=== PATIENT | female | born 1990 | race Caucasian/White ===

== ENCOUNTER 2018-01-13 09:15 | Emergency (ER) | payer OTHER ==
[~2018-01-13 09:15] MED LIST: ACET325; ALBU90OI INH; AMOX500 PO; ASCO1ER; AZIT250 PO; BIRTH CONTROL PO; Baclofen10 MG PO; Bactrim Ds Tab1 EACH PO; CEPH500 PO; CIPR250 PO; CLON.1 PO; CLON.2 PO; CLOT10 SS; CODACE30 PO; CYAN1000 PO; CYCL10 PO; Cipro250 MG PO; Cleocin HCl150 MG PO; Cleocin HCl300 MG PO; DOXY100 PO; Diflucan150 MG PO; ERGO50000 PO; FERR160; FLUC150A PO; GABA300 PO; GABA800 PO; HYDACE10B PO; HYDACE5 PO; HYDR1TAB94 PO; IBUP800 PO; KETO10 PO; LOPE2C PO; MAGIC MOUTHWASH; MEDR150I; MELO7.5 PO; METO5A PO; METPRE4DP PO; MULVITMINE; Macrobid 100 M100 MG PO; NAPR375 PO; NAPR500 PO; NAPR550 PO; NEOCOLOTSU OT; Naprosyn500 MG PO; Necon1 EAC2 PO; Norco 5-325 Ta1 EACH PO; ONDA8ODT MM; OXYACE5T PO; OXYACE7.5T PO; PAMPRIN; PARO12.5 PO; PARO30 PO; PENVK500 PO; PRAZ1 PO; PRED20 PO; PROM25 PO; Prazosin HCl1 MG PO; Prednisone20 MG PO; Pyridium200 MG PO; QUET200 PO; QUET25 PO; RXCODACET PO; RXCYCL10 PO; RXHYDACE PO; RXOXYACE PO; RXPENVK250 PO; SULTRIDS PO; TRAM50 PO; VENTOLIN; Ventolin5 MG/1 ML IH; Zofran Odt4 MG PO; Zofran Odt4 MG SL; [UNRECOGNIZED DRUG - REMARK]
== END 2018-01-13 11:15 | disposition left against medical advice (07) ==
LOC: ER 09:15
DX: Z53.21 Procedure and treatment not carried out due to patient leaving prior to being seen by health care provider (principal)

== ENCOUNTER 2018-08-03 10:24 | Emergency (ER) | payer OTHER ==
[~2018-08-03] VITALS: Ht 167.6 cm; Wt 93.0 kg
== END 2018-08-03 14:06 | disposition home or self-care (01) ==
LOC: ER 10:24
DX: N76.6 Ulceration of vulva (principal); F17.210 Nicotine dependence, cigarettes, uncomplicated
CPT/HCPCS: 86592; 87529; 99283

== ENCOUNTER → 2020-10-09 | Outpatient (CLI) | payer OTHER ==
[~2020-10-09] MED LIST changes: +TRIA15CR3 TOP
[2020-10-14 15:10] LABS: HPV 16 Negative (Negative); HPV 18 Negative (Negative); HPV OTHER HR TYPES Negative (Negative)
== END ==
LOC: LAB 15:45 → LAB SHORT 15:45
PROVIDERS: Registered Nurse
DX: Z12.4 Encounter for screening for malignant neoplasm of cervix (principal)
CPT/HCPCS: 87624; G0123